=== PATIENT | female | born 1990 | race Caucasian/White ===

== ENCOUNTER → 2019-01-03 | Outpatient (CLI) | payer OTHER ==
[~2019-01-03] MED LIST: ALBU90OI INH; AZIT250 PO; HYDACE5 PO; IBUP400 PO; MEDR150I IM; PENVK500 PO; PROACE100 PO; PROM25 PO; RXCLIN PO; RXHYD5325 PO; TRAM50 PO
== END ==
LOC: LAB SHORT 17:54 → LAB 17:54
DX: Z20.2 Contact with and (suspected) exposure to infections with a predominantly sexual mode of transmission (principal)
CPT/HCPCS: 87070; 87205

== ENCOUNTER → 2019-03-18 | Outpatient (CLI) | payer OTHER | LOC: LAB SHORT 14:59 → LAB UCHC 14:59 | DX: R53.0 Neoplastic (malignant) related fatigue (principal) | CPT/HCPCS: 87077; 87086; 87186 ==

== ENCOUNTER → 2019-05-04 | Outpatient (CLI) | payer OTHER ==
[2019-05-05 08:56] LABS: G. vaginalis (DNA Probe) Positive (NEGATIVE); T. vaginalis (DNA Probe) Negative (NEGATIVE)
[2019-05-05 08:57] LABS: Candida species (DNA Probe) Positive (NEGATIVE)
== END ==
LOC: LAB SHORT 17:46 → LAB 17:46
PROVIDERS: Registered Nurse Community Health
DX: N89.8 Other specified noninflammatory disorders of vagina (principal); N39.0 Urinary tract infection, site not specified
CPT/HCPCS: 87086; 87480; 87510; 87660

== ENCOUNTER → 2019-06-01 | Outpatient (CLI) | payer OTHER | LOC: LAB 16:00 → LAB SHORT 16:00 | DX: N89.8 Other specified noninflammatory disorders of vagina (principal) | CPT/HCPCS: 87070; 87205 ==

== ENCOUNTER → 2019-08-08 | Outpatient (CLI) | payer OTHER | END | disposition home or self-care (01) | LOC: LAB SHORT 17:59 → LAB EV 17:59 | DX: N39.0 Urinary tract infection, site not specified (principal) | CPT/HCPCS: 87077; 87086; 87186 ==

== ENCOUNTER → 2019-11-22 | Outpatient (CLI) | payer OTHER | LOC: LAB SHORT 14:42 → LAB EV 14:42 | DX: N39.0 Urinary tract infection, site not specified (principal) | CPT/HCPCS: 87077; 87086; 87186 ==

== ENCOUNTER → 2020-02-17 | Outpatient (CLI) | payer OTHER | END | disposition home or self-care (01) | LOC: LAB SHORT 13:48 → LAB 13:48 → LAB FUT 06-01 16:40 | DX: R30.9 Painful micturition, unspecified (principal) | CPT/HCPCS: 87086 ==

== ENCOUNTER → 2020-05-06 | Outpatient (CLI) | payer OTHER | END | disposition home or self-care (01) | LOC: LAB EV 13:37 → LAB SHORT 13:37 | DX: N39.0 Urinary tract infection, site not specified (principal) | CPT/HCPCS: 87077; 87086; 87186 ==

== ENCOUNTER → 2021-04-11 | Outpatient (CLI) | payer OTHER | LOC: LAB 18:18 → LAB SHORT 18:18 | DX: N89.8 Other specified noninflammatory disorders of vagina (principal) | CPT/HCPCS: 87070; 87205 ==

== ENCOUNTER 2021-04-18 10:34 | Emergency (ER) | payer BC ==
[~2021-04-18] VITALS: Ht 162.6 cm; Wt 72.6 kg
[2021-04-18] MEDS ORDERED: HYDR1TAB94 PO (13:31)
== END 2021-04-18 14:37 | disposition home or self-care (01) ==
LOC: ER 10:34
DX: O99.891 Other specified diseases and conditions complicating pregnancy (principal); R51.9 Headache, unspecified; Z3A.01 Less than 8 weeks gestation of pregnancy
CPT/HCPCS: 36415; 96374; 96375; 99283-25; A9270; J1200; J2765; J7030

== ENCOUNTER 2021-05-10 01:07 | Day surgery (SDC) | payer BC ==
[~2021-05-10 01:07] MED LIST changes: +HYDR1TAB94 PO
[2021-05-10] MEDS ORDERED: PROM25 (16:29)
[2021-05-10] MEDS ORDERED: PSEUDOEPHEDRINE30 M1 PO (16:29)
[2021-05-10] MEDS ORDERED: AMIT25 PO (16:30)
[2021-05-10] MEDS ORDERED: ALBU90OI INH (16:30)
[2021-05-10] MEDS ORDERED: Methocarbamol500 MG PO (16:30)
[2021-05-10] MEDS ORDERED: VITAMIN B 6 IM (16:31)
[2021-05-10] MEDS ORDERED: MONT10T PO (16:32)
[2021-05-10] MEDS ORDERED: ZOFRAN8 MG PO (16:32)
[2021-05-10] MEDS ORDERED: Flonase 0.05% N16 GM (16:33)
[2021-05-10] MEDS ORDERED: ZYRTEC10 M2 PO (16:33)
[2021-05-10] MEDS ORDERED: MECL25 (16:33)
[2021-05-10] MEDS ORDERED: FLUT1DIS5 INH (16:34)
== END 2021-05-10 18:43 | disposition home or self-care (01) ==
LOC: ATC 01:07
DX: O21.9 Vomiting of pregnancy, unspecified (principal); O99.511 Diseases of the respiratory system complicating pregnancy, first trimester; J45.40 Moderate persistent asthma, uncomplicated; Z3A.00 Weeks of gestation of pregnancy not specified
CPT/HCPCS: 96361; 96365; 96375; J2405; J3411; J3475; J7042; J7120

== ENCOUNTER 2021-05-14 02:30 | Day surgery (SDC) | payer BC ==
[~2021-05-14 02:30] MED LIST changes: +AMIT25 PO; +FLUT1DIS5 INH; +Flonase 0.05% N16 GM; +MECL25; +MONT10T PO; +Methocarbamol500 MG PO; +PROM25; +PSEUDOEPHEDRINE30 M1 PO; +VITAMIN B 6 IM; +ZOFRAN8 MG PO; +ZYRTEC10 M2 PO
== END 2021-05-14 17:00 | disposition home or self-care (01) ==
LOC: ATC 02:30
DX: O21.9 Vomiting of pregnancy, unspecified (principal); O99.511 Diseases of the respiratory system complicating pregnancy, first trimester; J45.40 Moderate persistent asthma, uncomplicated; O99.351 Diseases of the nervous system complicating pregnancy, first trimester; G43.909 Migraine, unspecified, not intractable, without status migrainosus; Z3A.09 9 weeks gestation of pregnancy; Z88.6 Allergy status to analgesic agent; Z91.048 Other nonmedicinal substance allergy status; Z87.440 Personal history of urinary (tract) infections
CPT/HCPCS: 96361; 96365; 96375; J2405; J3411; J3475; J7042; J7120

== ENCOUNTER 2021-05-17 00:26 | Day surgery (SDC) | payer BC ==
--- NOTE | 2021-05-17 14:48 | NUR ---
COVID + 05/15/21 PER PT.
== END 2021-05-17 15:52 | disposition home or self-care (01) ==
LOC: ATC 00:26
DX: O21.9 Vomiting of pregnancy, unspecified (principal); O99.519 Diseases of the respiratory system complicating pregnancy, unspecified trimester; J45.40 Moderate persistent asthma, uncomplicated; Z3A.00 Weeks of gestation of pregnancy not specified
CPT/HCPCS: 96361; 96365; 96375; J2405; J3411; J3475; J7042; J7120

== ENCOUNTER 2021-05-21 00:52 | Day surgery (SDC) | payer BC | END 2021-05-21 16:00 | disposition home or self-care (01) | LOC: ATC 00:52 | DX: O21.9 Vomiting of pregnancy, unspecified (principal); O99.52 Diseases of the respiratory system complicating childbirth; J45.40 Moderate persistent asthma, uncomplicated | CPT/HCPCS: 96361; 96365; 96375; J2405; J3411; J3475; J7042; J7120 ==

== ENCOUNTER 2021-05-24 02:08 | Day surgery (SDC) | payer BC | END 2021-05-24 23:19 | disposition home or self-care (01) | LOC: ATC 02:08 | DX: O21.9 Vomiting of pregnancy, unspecified (principal); O99.519 Diseases of the respiratory system complicating pregnancy, unspecified trimester; J45.40 Moderate persistent asthma, uncomplicated; Z3A.00 Weeks of gestation of pregnancy not specified | CPT/HCPCS: 96361; 96365; 96375; J2405; J3411; J3475; J7042; J7120 ==

== ENCOUNTER 2021-05-28 01:45 | Day surgery (SDC) | payer BC | END 2021-05-28 15:53 | disposition home or self-care (01) | LOC: ATC 01:45 | DX: O21.9 Vomiting of pregnancy, unspecified (principal); O99.519 Diseases of the respiratory system complicating pregnancy, unspecified trimester; J45.40 Moderate persistent asthma, uncomplicated; Z3A.00 Weeks of gestation of pregnancy not specified | CPT/HCPCS: 96361; 96365; 96375; J2405; J3411; J3475; J7042; J7120 ==

== ENCOUNTER 2021-05-31 02:33 | Day surgery (SDC) | payer BC, OTHER | END 2021-05-31 18:20 | disposition home or self-care (01) | LOC: ATC 02:33 | DX: R11.2 Nausea with vomiting, unspecified (principal) | CPT/HCPCS: 96360; 96361; 96365; 96375; J2405; J3411; J3475; J7042; J7060; J7120 ==

== ENCOUNTER 2021-06-05 16:00 | Day surgery (SDC) | payer BC, OTHER | END 2021-06-05 23:59 | disposition home or self-care (01) | LOC: ATC 16:00 | DX: O21.9 Vomiting of pregnancy, unspecified (principal); O99.519 Diseases of the respiratory system complicating pregnancy, unspecified trimester; J45.40 Moderate persistent asthma, uncomplicated; Z3A.00 Weeks of gestation of pregnancy not specified | CPT/HCPCS: J2405; J3411; J3475; J7042 ==

== ENCOUNTER 2021-06-11 02:30 | Day surgery (SDC) | payer BC, OTHER | END 2021-06-11 15:50 | disposition home or self-care (01) | LOC: ATC 02:30 | DX: R11.2 Nausea with vomiting, unspecified (principal); J45.40 Moderate persistent asthma, uncomplicated; Z88.8 Allergy status to other drugs, medicaments and biological substances; Z91.048 Other nonmedicinal substance allergy status | CPT/HCPCS: J2405; J3411; J3475; J7042; J7120 ==

== ENCOUNTER 2021-06-18 03:39 | Day surgery (SDC) | payer BC, OTHER | END 2021-06-18 18:10 | disposition home or self-care (01) | LOC: ATC 03:39 | DX: O21.9 Vomiting of pregnancy, unspecified (principal); Z3A.00 Weeks of gestation of pregnancy not specified | CPT/HCPCS: 96361; 96365; 96375; J2405; J3411; J3475; J7042; J7120 ==

== ENCOUNTER 2021-06-21 04:16 | Day surgery (SDC) | payer BC, OTHER | END 2021-06-21 17:48 | disposition home or self-care (01) | LOC: ATC 04:16 | DX: R11.2 Nausea with vomiting, unspecified (principal) | CPT/HCPCS: 96361; 96365; 96375; J2405; J3411; J3475; J7042; J7120 ==

== ENCOUNTER 2021-06-24 10:39 | Day surgery (SDC) | payer BC, OTHER | END 2021-06-24 16:37 | disposition home or self-care (01) | LOC: ATC 10:39 | DX: R11.2 Nausea with vomiting, unspecified (principal) | CPT/HCPCS: 96361; 96365; 96375; J2405; J3411; J3475; J7042; J7120 ==

== ENCOUNTER 2021-06-28 00:26 | Day surgery (SDC) | payer BC, OTHER | END 2021-06-28 18:32 | disposition home or self-care (01) | LOC: ATC 00:26 | DX: O21.9 Vomiting of pregnancy, unspecified (principal); O99.519 Diseases of the respiratory system complicating pregnancy, unspecified trimester; J45.40 Moderate persistent asthma, uncomplicated; Z3A.00 Weeks of gestation of pregnancy not specified | CPT/HCPCS: 96361; 96365; 96375; J2405; J3411; J3475; J7042; J7120 ==

== ENCOUNTER 2021-07-12 13:37 | Day surgery (SDC) | payer BC, OTHER | END 2021-07-12 17:09 | disposition home or self-care (01) | LOC: ATC 13:37 | DX: O26.891 Other specified pregnancy related conditions, first trimester (principal); R11.2 Nausea with vomiting, unspecified; N89.8 Other specified noninflammatory disorders of vagina; O99.511 Diseases of the respiratory system complicating pregnancy, first trimester; J45.40 Moderate persistent asthma, uncomplicated; O99.281 Endocrine, nutritional and metabolic diseases complicating pregnancy, first trimester; E55.9 Vitamin D deficiency, unspecified; Z3A.09 9 weeks gestation of pregnancy; Z79.899 Other long term (current) drug therapy; Z86.16 Personal history of COVID-19; Z91.048 Other nonmedicinal substance allergy status; Z88.5 Allergy status to narcotic agent | CPT/HCPCS: 96361; 96365; 96375; J2405; J3411; J3475; J7042; J7120 ==

== ENCOUNTER → 2021-09-04 | Outpatient (CLI) | payer BC, OTHER ==
[2021-09-04 16:51] LABS: Hematocrit 36.7 % (33.0-51.0); Hemoglobin 12.1 g/dL (11.5-16.0)
== END ==
LOC: LAB SHORT 15:22 → LAB 15:22
PROVIDERS: Registered Nurse Community Health
DX: Z34.91 Encounter for supervision of normal pregnancy, unspecified, first trimester (principal)
CPT/HCPCS: 82950; 85014; 85018

== ENCOUNTER → 2021-10-28 | Outpatient (CLI) | payer BC, OTHER ==
[2021-10-28 19:31] LABS: BASOPHILS ABSOLUTE AUTO 0.02 K/mm3 (0.00-0.23); BASOPHILS PERCENT AUTO 0 % (0-2); EOSINOPHILS ABSOLUTE AUTO 0.07 K/mm3 (0.00-0.68); EOSINOPHILS PERCENT AUTO 1 % (0-6); Hematocrit 35.5 % (33.0-51.0); Hemoglobin 11.5 g/dL (11.5-16.0); IMMATURE GRAN ABSOLUTE AUTO 0.09 K/mm3 (0.00-0.10); IMMATURE GRAN PERCENT AUTO 1 % (0-1); LYMPHOCYTES ABSOLUTE AUTO 2.61 K/mm3 (0.84-5.20); LYMPHOCYTES PERCENT AUTO 24 % (21-46); MONOCYTES ABSOLUTE AUTO 0.64 K/mm3 (0.16-1.47); MONOCYTES PERCENT AUTO 6 % (4-13); Mean Corpuscular HGB 28.9 pg (26.0-34.0); Mean Corpuscular HGB Conc 32.4 g/dL (31.5-36.5); Mean Corpuscular Volume 89 fL (80-100); Mean Platelet Volume 12.6 fL (9.1-12.4); NEUTROPHILS ABSOLUTE AUTO 7.45 K/mm3 (1.96-9.15); NEUTROPHILS PERCENT AUTO 69 % (41-73); Platelet Count 224 K/mm3 (150-400); RDW Coefficient Variation 12.8 % (11.7-14.2); Red Blood Cell Count 3.98 M/mm3 (3.80-5.20); White Blood Cell Count 10.88 K/mm3 (4.00-11.30)
[2021-10-28 19:39] LABS: Alanine Aminotransfer (ALT/SGP 23 U/L (12-78); Albumin, Blood 2.6 g/dL (3.4-5.0); Albumin/Globulin Ratio 0.7 (0.8-1.8); Alk Phos 144 U/L (50-136); Anion Gap 7 mmol/L (6-16); Aspartate Aminotrans (AST/SGOT 14 U/L (12-37); Bilirubin, Total 0.1 mg/dL (0.1-1.0); Blood Urea Nitrogen 11 mg/dL (8-24); Bun/Creatinine Ratio 20.5 (12.0-20.0); CO2, Blood 20 mmol/L (21-32); Calcium, Blood 8.8 mg/dL (8.5-10.1); Chloride, Blood 110 mmol/L (98-108); Creatinine, Blood 0.54 mg/dL (0.40-1.00); Globulin, Blood 3.7 g/dL (2.2-4.0); Glomerular Filtration Rate >60 (60-); Glucose, Blood 86 mg/dL (70-99); Sodium, Blood 137 mmol/L (136-145); Total Protein, Blood 6.3 g/dL (6.4-8.2)
[2021-10-28 20:10] LABS: Protein, Urine Random 13.8 mg/dL (0.0-11.9); Protein/Creat Ratio, Ur Random 0.1
== END ==
LOC: LAB SHORT 18:11
PROVIDERS: Registered Nurse Community Health
DX: R03.0 Elevated blood-pressure reading, without diagnosis of hypertension (principal)
CPT/HCPCS: 80053; 82570; 84156; 85025

== ENCOUNTER → 2021-10-30 | Outpatient (CLI) | payer BC, OTHER | LOC: LAB SHORT 14:30 → LAB 14:30 | DX: Z34.91 Encounter for supervision of normal pregnancy, unspecified, first trimester (principal) | CPT/HCPCS: 87081; 87150 ==

== ENCOUNTER 2021-11-07 16:05 | Inpatient (IN) | payer BC, OTHER ==
[~2021-11-07] VITALS: Ht 162.6 cm; Wt 80.0 kg
[2021-11-07 18:09] LABS: BASOPHILS ABSOLUTE AUTO 0.02 K/mm3 (0.00-0.23); BASOPHILS PERCENT AUTO 0 % (0-2); EOSINOPHILS ABSOLUTE AUTO 0.08 K/mm3 (0.00-0.68); EOSINOPHILS PERCENT AUTO 1 % (0-6); Hematocrit 33.5 % (33.0-51.0); IMMATURE GRAN ABSOLUTE AUTO 0.07 K/mm3 (0.00-0.10); IMMATURE GRAN PERCENT AUTO 1 % (0-1); LYMPHOCYTES ABSOLUTE AUTO 2.98 K/mm3 (0.84-5.20); LYMPHOCYTES PERCENT AUTO 23 % (21-46); MONOCYTES ABSOLUTE AUTO 0.68 K/mm3 (0.16-1.47); MONOCYTES PERCENT AUTO 5 % (4-13); Mean Corpuscular HGB 28.9 pg (26.0-34.0); Mean Corpuscular HGB Conc 32.8 g/dL (31.5-36.5); Mean Corpuscular Volume 88 fL (80-100); Mean Platelet Volume 12.3 fL (9.1-12.4); NEUTROPHILS ABSOLUTE AUTO 8.98 K/mm3 (1.96-9.15); NEUTROPHILS PERCENT AUTO 70 % (41-73); Platelet Count 231 K/mm3 (150-400); RDW Coefficient Variation 13.5 % (11.7-14.2); RDW Standard Deviation 43.7 fL (35.1-46.3); White Blood Cell Count 12.81 K/mm3 (4.00-11.30)
[2021-11-07 20:02] LABS: Influenza A, PCR NEGATIVE (NEGATIVE); Influenza B, PCR NEGATIVE (NEGATIVE); Resp Syncytial Virus, PCR NEGATIVE (NEGATIVE); SARS-Cov-2 (COVID-19) PCR, MMC NEGATIVE (NEGATIVE)
[2021-11-08 08:03] LABS: Hematocrit 28.6 % (33.0-51.0); Hemoglobin 9.7 g/dL (11.5-16.0); Mean Corpuscular HGB 29.8 pg (26.0-34.0); Mean Corpuscular HGB Conc 33.9 g/dL (31.5-36.5); Mean Corpuscular Volume 88 fL (80-100); Mean Platelet Volume 12.1 fL (9.1-12.4); Platelet Count 210 K/mm3 (150-400); RDW Coefficient Variation 13.4 % (11.7-14.2); RDW Standard Deviation 42.9 fL (35.1-46.3); Red Blood Cell Count 3.25 M/mm3 (3.80-5.20); White Blood Cell Count 23.04 K/mm3 (4.00-11.30)
--- NOTE | 2021-11-09 11:14 | NUR ---
DISCHARGE INSTRUCTIONS DISCUSSED AND SIGNED. BANDS MATCHED.
== END 2021-11-09 11:50 | disposition home or self-care (01) | DRG 807 ==
LOC: OBS 16:05 → BC 16:07 → OBS 16:56 → BC 16:57
PROVIDERS: ADMIT Registered Nurse Community Health
PROC: 10E0XZZ Delivery of Products of Conception, External Approach (ICD-10-PCS; principal; 2021-11-08)
PROC: 0HQ9XZZ Repair Perineum Skin, External Approach (ICD-10-PCS; 2021-11-08)
PROC: 3E0234Z Introduction of Serum, Toxoid and Vaccine into Muscle, Percutaneous Approach (ICD-10-PCS; 2021-11-08)
DX: O70.0 First degree perineal laceration during delivery (principal); Z37.0 Single live birth; Z20.822 Contact with and (suspected) exposure to COVID-19; Z67.41 Type O blood, Rh negative; Z3A.37 37 weeks gestation of pregnancy; O26.893 Other specified pregnancy related conditions, third trimester
CPT/HCPCS: 0241U; 36415; 59025; 81003; 85025; 85027; 85460; 86850; 86870; 86900; 86901; 96372; A9270; J1885; J2210; J2590; J2791

== ENCOUNTER → 2022-02-25 | Outpatient (CLI) | payer BC, OTHER ==
[2022-02-28 14:11] LABS: HPV 16 Negative (Negative); HPV 18 Negative (Negative); HPV OTHER HR TYPES Negative (Negative)
== END ==
LOC: LAB SHORT 15:50 → LAB 15:50
PROVIDERS: Registered Nurse Community Health
DX: Z12.4 Encounter for screening for malignant neoplasm of cervix (principal)
CPT/HCPCS: 87624; G0123

== ENCOUNTER → 2022-04-09 | Outpatient (CLI) | payer BC, OTHER | END | disposition home or self-care (01) | LOC: LAB 15:23 → LAB SHORT 15:23 | DX: N89.8 Other specified noninflammatory disorders of vagina (principal) | CPT/HCPCS: 87070; 87205 ==

== ENCOUNTER → 2023-01-20 | Outpatient (CLI) | payer BC, OTHER | END | disposition home or self-care (01) | LOC: LAB SHORT 13:22 | DX: Z34.01 Encounter for supervision of normal first pregnancy, first trimester (principal) | CPT/HCPCS: 84702 ==

== ENCOUNTER → 2023-03-03 | Outpatient (CLI) | payer BC, OTHER | END | disposition home or self-care (01) | LOC: LAB 15:49 → LAB SHORT 15:49 | DX: O03.9 Complete or unspecified spontaneous abortion without complication (principal) | CPT/HCPCS: 84702 ==

== ENCOUNTER → 2023-08-27 | Outpatient (CLI) | payer BC, OTHER ==
[2023-08-27 17:36] LABS: Source, Urine Clean Catch
[2023-08-27 19:16] LABS: Appearance, Urine Hazy (Clear); Bilirubin, Urine Neg (Neg); Blood, Urine 3+ (Neg); Color, Urine Yellow (P-Yellow); Glucose Qualitative, Urine Neg (Neg); Ketones, Urine Neg (Neg); Leukocyte Esterase, Urine Neg (Neg); Nitrite, Urine Neg (Neg); Protein, Urine Neg (Neg); Specific Gravity, Urine 1.025 (1.003-1.022); Urobilinogen, Urine NORM (Normal)
[2023-08-27 19:32] LABS: BASOPHILS ABSOLUTE AUTO 0.02 K/mm3 (0.00-0.23); BASOPHILS PERCENT AUTO 0 % (0-2); EOSINOPHILS ABSOLUTE AUTO 0.05 K/mm3 (0.00-0.68); EOSINOPHILS PERCENT AUTO 1 % (0-6); Hematocrit 36.6 % (33.0-51.0); Hemoglobin 12.6 g/dL (11.5-16.0); IMMATURE GRAN ABSOLUTE AUTO 0.02 K/mm3 (0.00-0.10); IMMATURE GRAN PERCENT AUTO 0 % (0-1); LYMPHOCYTES PERCENT AUTO 24 % (21-46); MONOCYTES ABSOLUTE AUTO 0.46 K/mm3 (0.16-1.47); MONOCYTES PERCENT AUTO 5 % (4-13); Mean Corpuscular HGB 30.2 pg (26.0-34.0); Mean Corpuscular HGB Conc 34.4 g/dL (31.5-36.5); Mean Corpuscular Volume 88 fL (80-100); Mean Platelet Volume 10.5 fL (9.1-12.4); NEUTROPHILS ABSOLUTE AUTO 6.97 K/mm3 (1.96-9.15); NEUTROPHILS PERCENT AUTO 70 % (41-73); Platelet Count 280 K/mm3 (150-400); RDW Standard Deviation 41.9 fL (35.1-46.3); Red Blood Cell Count 4.17 M/mm3 (3.80-5.20); White Blood Cell Count 9.92 K/mm3 (4.00-11.30)
[2023-08-27 20:18] LABS: Amorphous Light (0-Heavy); Bacteria Few /hpf; Red Blood Cells, Urine 0-2 /hpf (0-2); Squamous Epithelial Cells Few /hpf (Few); White Blood Cells, Urine 0-2 /hpf (0-5)
[2023-08-27 20:19] LABS: Mucus Light (0-Heavy)
[2023-08-30 16:09] LABS: HEPATITIS B SURFACE ANTIGEN Negative (Negative)
[2023-08-30 18:42] LABS: HIV 1,2 COMBO ANTIGEN/ANTIBODY Negative (Negative)
== END ==
LOC: LAB SHORT 17:11
PROVIDERS: Registered Nurse Community Health
DX: Z34.91 Encounter for supervision of normal pregnancy, unspecified, first trimester (principal); Z3A.00 Weeks of gestation of pregnancy not specified
CPT/HCPCS: 81001; 84443; 85025; 86592; 86762; 86850; 86900; 86901; 87086

== ENCOUNTER → 2023-09-07 | Outpatient (CLI) | payer BC, OTHER ==
[2023-09-11 04:20] LABS: APTIMA MEDIA TYPE Urine; C. TRACHOMATIS BY TMA Negative (Negative); N. GONORRHOEAE BY TMA Negative (Negative); SPECIMEN SOURCE Urine
== END ==
LOC: LAB SHORT 17:06 → LAB 17:06
PROVIDERS: Registered Nurse Community Health
DX: Z34.81 Encounter for supervision of other normal pregnancy, first trimester (principal); N89.8 Other specified noninflammatory disorders of vagina
CPT/HCPCS: 87070; 87205; 87491; 87591

== ENCOUNTER → 2023-11-24 | Outpatient (CLI) | payer BC, OTHER | LOC: LAB SHORT 13:22 | DX: R81 Glycosuria (principal) | CPT/HCPCS: 83036 ==

== ENCOUNTER → 2024-01-18 | Outpatient (CLI) | payer BC, OTHER ==
[2024-01-18 14:46] LABS: Hemoglobin 10.2 g/dL (11.5-16.0)
== END | disposition home or self-care (01) ==
LOC: LAB 13:25 → LAB SHORT 13:25
PROVIDERS: Registered Nurse Community Health
DX: Z34.82 Encounter for supervision of other normal pregnancy, second trimester (principal)
CPT/HCPCS: 82950; 85014; 85018

== ENCOUNTER → 2024-03-14 | Outpatient (CLI) | payer BC, OTHER | LOC: LAB SHORT 15:41 → LAB 15:41 | DX: Z34.93 Encounter for supervision of normal pregnancy, unspecified, third trimester (principal) | CPT/HCPCS: 87081; 87150 ==

== ENCOUNTER 2024-03-24 15:31 | Inpatient (IN) | payer BC, OTHER ==
[2024-03-24] VITALS (13 sets, daily range): BP systolic 136–168; BP diastolic 68–98
[~2024-03-24] VITALS: Ht 162.6 cm; Wt 91.8 kg
[2024-03-24] MEDS ORDERED: Methylergonovine Maleate 0.2MG / ML 1ML Amp IM SCH (16:00)
[2024-03-24] MEDS ORDERED: Misoprostol 200 MCG Tab PR SCH (16:00)
[2024-03-24] MEDS ORDERED: FentaNYL 2mcg/ml-Bup 0.1% Epd 250 ML EPI PRN (16:00)
[2024-03-24] MEDS ORDERED: ePHEDrine Sulfate 50 MG/ML 1ML Injection XX PRN (16:00)
[2024-03-24] MEDS ORDERED: Lactated Ringer's 1,000 ML IV SCH ×3 (16:00→18:00)
[2024-03-24] MEDS ORDERED: Bupivacaine 0.5% HCl 5 MG/ML 30MLVIAL XX SCH (16:00)
[2024-03-24] MEDS ORDERED: Oxytocin 10 Unit / ML Vial IM SCH (16:00)
[2024-03-24] MEDS ORDERED: Lidocaine HCl 1% 30 ML SDV XX SCH (16:00)
[2024-03-24] MEDS ORDERED: Bupivacaine HCl 2.5 MG/ML 10ML P/F Injection XX SCH (16:00)
[2024-03-24] MEDS ORDERED: Lactated Ringer's 1,000 ML IV PRN (16:00)
[2024-03-24] MEDS ORDERED: OXYTOCIN/RINGER'S LACTATE 500 ML IV SCH ×2 (16:00→18:00)
[2024-03-24] MEDS ORDERED: Castor Oil 59.146 ML BTL TOP SCH (16:00)
[2024-03-24] MEDS ORDERED: Ondansetron HCl 2 MG / ML 2ML Vial IV PRN (16:05)
[2024-03-24] MEDS ORDERED: FentaNYL Citrate 50 MCG/ML 2 ML Injection IV PRN (16:05)
[2024-03-24] MEDS ORDERED: Pantoprazole Sodium 40 MG Injection IV PRN (16:05)
[2024-03-24] MEDS ORDERED: METF500 (16:12)
[2024-03-24 16:21] LABS: BASOPHILS ABSOLUTE AUTO 0.03 K/mm3 (0.00-0.23); BASOPHILS PERCENT AUTO 0 % (0-2); EOSINOPHILS ABSOLUTE AUTO 0.06 K/mm3 (0.00-0.68); EOSINOPHILS PERCENT AUTO 0 % (0-6); Hematocrit 35.3 % (33.0-51.0); Hemoglobin 11.6 g/dL (11.5-16.0); IMMATURE GRAN ABSOLUTE AUTO 0.12 K/mm3 (0.00-0.10); IMMATURE GRAN PERCENT AUTO 1 % (0-1); LYMPHOCYTES ABSOLUTE AUTO 3.82 K/mm3 (0.84-5.20); LYMPHOCYTES PERCENT AUTO 25 % (21-46); MONOCYTES ABSOLUTE AUTO 0.72 K/mm3 (0.16-1.47); MONOCYTES PERCENT AUTO 5 % (4-13); Mean Corpuscular HGB 28.4 pg (26.0-34.0); Mean Corpuscular HGB Conc 32.9 g/dL (31.5-36.5); Mean Corpuscular Volume 86 fL (80-100); Mean Platelet Volume 11.9 fL (9.1-12.4); NEUTROPHILS ABSOLUTE AUTO 10.32 K/mm3 (1.96-9.15); NEUTROPHILS PERCENT AUTO 69 % (41-73); Platelet Count 233 K/mm3 (150-400); RDW Coefficient Variation 13.9 % (11.7-14.2); RDW Standard Deviation 43.3 fL (35.1-46.3); Red Blood Cell Count 4.09 M/mm3 (3.80-5.20); White Blood Cell Count 15.07 K/mm3 (4.00-11.30)
[2024-03-24] MEDS ORDERED: Misoprostol 200 MCG Tab PR PRN (17:55)
[2024-03-24] MEDS ORDERED: Lanolin Cream TOP PRN (17:55)
[2024-03-24] MEDS ORDERED: Methylergonovine Maleate 0.2MG / ML 1ML Amp IM PRN (18:00)
[2024-03-24] MEDS ORDERED: Ibuprofen 400 MG Tab PO PRN (18:00)
[2024-03-24] MEDS ORDERED: Benzocaine Topical Anesthetic Spray 60GM TOP PRN (18:00)
[2024-03-24] MEDS ORDERED: Ketorolac Tromethamine 30mg Vial IV SCH (18:00)
[2024-03-24] MEDS ORDERED: Witch Hazel/Glycerin PADS TOP PRN (18:00)
[2024-03-24] MEDS ORDERED: Rho(D) Immune Globulin 300 MCG / SYR IM ONE (18:05)
[2024-03-25 00:27] VITALS: BP 143/85
[2024-03-25] MEDS ORDERED: Rho(D) Immune Globulin 300 MCG / SYR IM ONE (05:10)
[2024-03-25 05:45] VITALS: BP 129/83
[2024-03-25 06:40] LABS: BASOPHILS ABSOLUTE AUTO 0.04 K/mm3 (0.00-0.23); BASOPHILS PERCENT AUTO 0 % (0-2); EOSINOPHILS PERCENT AUTO 1 % (0-6); Hematocrit 29.7 % (33.0-51.0); Hemoglobin 9.7 g/dL (11.5-16.0); IMMATURE GRAN PERCENT AUTO 1 % (0-1); LYMPHOCYTES ABSOLUTE AUTO 3.19 K/mm3 (0.84-5.20); LYMPHOCYTES PERCENT AUTO 21 % (21-46); MONOCYTES ABSOLUTE AUTO 0.83 K/mm3 (0.16-1.47); MONOCYTES PERCENT AUTO 6 % (4-13); Mean Corpuscular HGB 28.3 pg (26.0-34.0); Mean Corpuscular HGB Conc 32.7 g/dL (31.5-36.5); Mean Corpuscular Volume 87 fL (80-100); Mean Platelet Volume 11.3 fL (9.1-12.4); NEUTROPHILS ABSOLUTE AUTO 10.82 K/mm3 (1.96-9.15); NEUTROPHILS PERCENT AUTO 72 % (41-73); Platelet Count 186 K/mm3 (150-400); Red Blood Cell Count 3.43 M/mm3 (3.80-5.20); White Blood Cell Count 15.08 K/mm3 (4.00-11.30)
[2024-03-25 08:52] VITALS: BP 124/68
[2024-03-25] MEDS ORDERED: Prenatal Vit/FE Fumarate/FA 1 Tab PO SCH (09:00)
[2024-03-25 11:26] VITALS: BP 144/80
[2024-03-25 16:02] VITALS: BP 143/88
[2024-03-26 13:37] LABS: FETAL HGB - PERCENT FETAL RBCS 0.001 % (0.000-0.124)
--- NOTE | 2024-03-28 10:09 | NUR ---
UPDATED MEASUREMENT AND WEIGHT PER [facility]
== END 2024-03-25 17:57 | disposition home or self-care (01) | DRG 806 ==
LOC: BC 15:31 → OBS 15:31 → BC 15:55
PROVIDERS: Obstetrics & Gynecology; ADMIT Family Medicine
PROC: 10E0XZZ Delivery of Products of Conception, External Approach (ICD-10-PCS; principal; 2024-03-24)
DX: O42.02 Full-term premature rupture of membranes, onset of labor within 24 hours of rupture (principal); O99.354 Diseases of the nervous system complicating childbirth; Z37.0 Single live birth; O62.3 Precipitate labor; Z3A.38 38 weeks gestation of pregnancy; G43.909 Migraine, unspecified, not intractable, without status migrainosus; O99.52 Diseases of the respiratory system complicating childbirth; J42 Unspecified chronic bronchitis; O24.425 Gestational diabetes mellitus in childbirth, controlled by oral hypoglycemic drugs; Z79.51 Long term (current) use of inhaled steroids
CPT/HCPCS: 36415; 82947; 85025; 86850; 86900; 86901; A9270; J1885; J2791

== ENCOUNTER 2024-09-22 05:38 | Emergency (ER) | payer BC, OTHER ==
[~2024-09-22] VITALS: Ht 162.6 cm; Wt 88.0 kg
[~2024-09-22 05:38] MED LIST changes: +METF500
[2024-09-22 06:33] LABS: BASOPHILS ABSOLUTE AUTO 0.02 K/mm3 (0.00-0.23); BASOPHILS PERCENT AUTO 0 % (0-2); EOSINOPHILS PERCENT AUTO 2 % (0-6); Hematocrit 37.8 % (33.0-51.0); Hemoglobin 12.9 g/dL (11.5-16.0); IMMATURE GRAN ABSOLUTE AUTO 0.01 K/mm3 (0.00-0.10); IMMATURE GRAN PERCENT AUTO 0 % (0-1); LYMPHOCYTES ABSOLUTE AUTO 4.05 K/mm3 (0.84-5.20); LYMPHOCYTES PERCENT AUTO 62 % (21-46); MONOCYTES ABSOLUTE AUTO 0.45 K/mm3 (0.16-1.47); MONOCYTES PERCENT AUTO 7 % (4-13); Mean Corpuscular HGB 29.8 pg (26.0-34.0); Mean Corpuscular HGB Conc 34.1 g/dL (31.5-36.5); Mean Corpuscular Volume 87 fL (80-100); NEUTROPHILS ABSOLUTE AUTO 1.92 K/mm3 (1.96-9.15); NEUTROPHILS PERCENT AUTO 29 % (41-73); Platelet Count 261 K/mm3 (150-400); RDW Coefficient Variation 12.7 % (11.7-14.2); Red Blood Cell Count 4.33 M/mm3 (3.80-5.20); White Blood Cell Count 6.55 K/mm3 (4.00-11.30)
[2024-09-22 06:46] LABS: Albumin, Blood 3.6 g/dL (3.4-5.0); Bilirubin, Total 0.5 mg/dL (0.1-1.0); Bun/Creatinine Ratio 17.7 (12.0-20.0); Calcium, Blood 9.2 mg/dL (8.5-10.1); Creatinine, Blood 0.68 mg/dL (0.40-1.00); Globulin, Blood 3.6 g/dL (2.2-4.0); Potassium, Blood 3.4 mmol/L (3.5-5.5); Total Protein, Blood 7.2 g/dL (6.4-8.2)
[2024-09-22] MEDS ORDERED: HYDROmorphone HCl/Pf 1MG SYR IV ONE (06:50)
[2024-09-22] MEDS ORDERED: Ondansetron HCl 2 MG / ML 2ML Vial IV ONE (06:50)
[2024-09-22] MEDS ORDERED: Ketorolac Tromethamine 30mg Vial IV ONE (06:50)
[2024-09-22] MEDS ORDERED: DICY20 PO (09:02)
[2024-09-22 09:07] VITALS: BP 107/75
== END 2024-09-22 09:08 | disposition home or self-care (01) ==
LOC: ER 05:38
PROVIDERS: Emergency Medicine
DX: R10.11 Right upper quadrant pain (principal); J45.909 Unspecified asthma, uncomplicated; G43.909 Migraine, unspecified, not intractable, without status migrainosus; Z88.5 Allergy status to narcotic agent; Z79.52 Long term (current) use of systemic steroids
CPT/HCPCS: 76705; 80053; 83690; 84703; 85025; 96374; 96375; 99284-25; J1171; J1885; J2405

== ENCOUNTER → 2024-10-11 | Outpatient (CLI) | payer OTHER ==
[~2024-10-11] MED LIST changes: +DICY20 PO
[2024-10-11 15:50] LABS: Bacterial Vaginosis PCR Negative (NEGATIVE); Candida glabrata-krusei, PCR NOT DETECTED (NOT DETECT)
[2024-10-11 15:51] LABS: Candida Group, PCR DETECTED (NOT DETECT)
== END | disposition home or self-care (01) ==
LOC: LAB 12:56 → LAB SHORT 12:56
PROVIDERS: Registered Nurse Community Health
DX: N89.8 Other specified noninflammatory disorders of vagina (principal)
CPT/HCPCS: 81515